=== PATIENT | female | born 1935 | race Caucasian/White ===

== ENCOUNTER 2019-04-28 15:08 | Emergency (ER) | payer MEDICARE, OTHER ==
--- NOTE | 2019-04-28 16:11 | CT ---
CT BRAIN WITHOUT CONTRAST: HISTORY: Fall, trauma to the forehead. FINDINGS: No evidence of acute infarct, hemorrhage, midline shift or abnormal extra-axial fluid collections is seen. The ventricular size is appropriate and the basilar cisterns are patent. The bony calvarium is intact. The visualized paranasal sinuses and mastoid air cells are well aerated. IMPRESSION: No CT evidence of acute intracranial process.
--- NOTE | 2019-04-28 16:12 | CT ---
CT Cervical Spine WO Con Indication: Pain/Injury COMPARISON: None FINDINGS: Acute fracture/subluxation: None Spinal alignment: Mild spondylolisthesis at C4-5 and C7-T1. Findings are likely chronic, given the as sociated facet osteoarthritis Vertebral body heights: No acute compression deformity. Mild degenerative height loss is present. Cervical spine degenerative change: Moderate multilevel degenerative change. Incidental of enlargement and heterogeneity of the right thyroid lobe, incompletely assessed. This ma y be further assessed with follow-up thyroid ultrasound. IMPRESSION: No acute osseous abnormality.
== END 2019-04-28 16:33 | disposition home or self-care (01) ==
LOC: NAV ERS 15:08
DX: S06.0X0A Concussion without loss of consciousness, initial encounter (principal); S00.83XA Contusion of other part of head, initial encounter; I10 Essential (primary) hypertension; I48.91 Unspecified atrial fibrillation; J44.9 Chronic obstructive pulmonary disease, unspecified; W01.198A Fall on same level from slipping, tripping and stumbling with subsequent striking against other object, initial encounter
CPT/HCPCS: 70450; 72125